=== PATIENT | female | born 1960 | race Caucasian/White ===

== ENCOUNTER 2024-11-26 00:53 | Observation (INO) | payer OTHER, SELFPAY ==
[2024-11-26 02:22] VITALS: O2SAT 95
--- NOTE | 2024-11-26 02:40 | USCV_ITS ---
Ally Deras Age: 64 Gender: F : 1960 Exam Date: 11/26/2024 04:12 Ordering Phys: Marielos Li MD Technologist: MARCELO Exam Location: [facility] Indication: Atrial fibrillation with RVR BP: 144 / 83 HR: 66 Rhythm: Sinus Technical Quality: Adequate MEASUREMENTS (Male / Female) Normal Values 2D ECHO LV Diastolic Diameter PLAX 3.8 cm 4.2 - 5.9 / 3.9 - 5.3 cm IVS Diastolic Thickness 1.5 cm 0.6 - 1.0 / 0.6 - 0.9 cm IVS Systolic Thickness 1.8 cm LVPW Diastolic Thickness 1.4 cm 0.6 - 1.0 / 0.6 - 0.9 cm LVPW Systolic Thickness 1.6 cm LVOT Diameter 1.7 cm LV Ejection Fraction 2D Teich 60.5 % LV Ejection Fraction MOD 4C 64.0 % LV Ejection Fraction MOD 2C 56.5 % LV Ejection Fraction 2C AL 59.0 % LA Diameter 2.8 cm Aorta at Sinotubular Diameter 3.0 cm IVC Diameter 1.7 cm M-MODE LA Ao Ratio MM 1.0 AV Cusp Separation MM 1.8 cm DOPPLER AV Peak Velocity 153.0 cm/s LVOT Peak Velocity 137.0 cm/s AV Area Cont Eq vti 1.9 cm squared AV Area Cont Eq pk 2.0 cm squared MV Peak Velocity 103.0 cm/s MV Area PHT 3.7 cm squared Mitral E to A Ratio 1.2 TV Peak Velocity 205.5 cm/s TR Peak Velocity 236.0 cm/s TR Peak Gradient 22.3 mmHg TV Peak E Velocity 62.0 cm/s PV Peak Velocity 92.0 cm/s FINDINGS Left Ventricle Normal left ventricular size, systolic function and wall thickness, with no regional wall motion abnormalities. Left ventricular ejection fraction is estimated at 60 %. Grade II/IV diastolic dysfunction, moderately elevated filling pressures. Right Ventricle The right ventricle is normal in size and function. Right Atrium The right atrium is normal in size. Left Atrium Moderately increased left atrial size. Mitral Valve Mildly thickened mitral valve. No mitral valve stenosis. Mild mitral valve regurgitation. Aortic Valve Structurally normal aortic valve without significant sclerosis or stenosis. There is no aortic regurgitation. Tricuspid Valve Mild tricuspid valve regurgitation. Pulmonic Valve Structurally normal pulmonic valve without significant stenosis. There is no pulmonic regurgitation. Pericardium Normal pericardium without effusion. Aorta Normal ascending aorta dimension. IVC The inferior vena cava appears normal. CONCLUSIONS Normal left ventricular size, systolic function and wall thickness, with no regional wall motion abnormalities. Left ventricular ejection fraction is estimated at 60 %. Grade II/IV diastolic dysfunction, moderately elevated filling pressures. Moderately increased left atrial size. Mildly thickened mitral valve. No mitral valve stenosis. Mild mitral valve regurgitation. Structurally normal aortic valve without significant sclerosis or stenosis. There is no aortic regurgitation. Mild tricuspid valve regurgitation. There is no pericardial effusion. Right atrial pressure is around 5 mm of mercury. Mejia Lopez MD (Electronically Signed) Final Date: 26 November 2024 20:03 S
--- NOTE | 2024-11-26 02:54 | P.HP_ITS ---
Providers/Chief Complaint 2 Admitting Physician: Marielos Li MD--- patient seen and evaluated after 12 midnight Primary Care Provider: BRADY Sanz Chief Complaint: A-Fib with RVR History of Present Illness Ally Deras is a 64 year old female with medical history significant for atrial fibrillation and was never on any anticoagulant because she did not want to be.. Patient was diagnosed with A-fib 2 years ago. Finally she is now agreeing to be on anticoagulant and [facility] and patient had not gotten it yet. Patient has had cardiology over in [facility] and was actually there and had stress test done 2 days ago result is unknown. Patient was over at [facility] here in [place] because of atrial fibrillation with RVR. She never had any chest pain but had palpitation. At the time when patient arrived there the heart rate was in the 130s. She was given some boluses of Cardizem and that did not help and finally Cardizem drip was initiated. At that [facility] patient could not be admitted there because they do not have cardiology. If they could liquid out of bed because they did not have the results of the stress test at the time neither do we have this at this particular time. They had called [facility] did not have a bed for that reason they called here to accept this patient for care I accepted patient. Patient got here after 12 midnight troponin over there had been negative x 2 and 6-hour troponin was negative as well. Patient converted this morning to normal sinus rhythm in the 60s 70s. Cardizem drip was discontinued I gave patient metoprolol succinate 25 mg and patient has stayed in sinus. 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 Actually because of his symptomatology she is splitting this dose to take it 4 times a day and the other was 12.5 mg 4 times a day or as she will get dizzy with it. At related to her she probably was taking the losartan 100 mg daily along with hydrochlorothiazide that she was taking for blood pressure and this might be what is causing the symptoms for the combinations. Cardiology will be seeing this patient and decide as to what to do. Report had been requested from [facility] as to the results of the stress test that was just done 2 days ago. Review of Systems 2 Narrative: System review upon 10 organ review we are only remarkable for palpitation because of atrial fibrillation with RVR. Medications/Allergies Home Medications ?Medication ?Instructions ?Recorded ?Confirmed ?Last Taken ?Type hydrochlorothiazide 12.5 mg tablet 12.5 mg PO DAILY 11/26/24 Unknown History losartan 100 mg tablet 100 mg PO DAILY 11/26/2402/09 Unknown History metoprolol succinate 25 mg 25 mg PO BID 11/26/2411/26 Unknown History tablet,extended release 24 hr Vitals/I&O/Wt Last Vital Signs Pulse Ox 95 11/26/24 02:22 O2 Del Method Room Air 11/26/24 01:06 FiO2 21 11/26/24 02:22 Weight last 48 hrs Weight 90.322 kg Physical Exam 2 Narrative: Generally patient is not unwell not ill-appearing doing okay and very eloquent and talks a lot. HEENT normocephalic/atraumatic neck neck is supple cardiovascular heart rate is regular lungs are pretty much clear abdomen soft nontender nondistended unremarkable extremities are intact no edema has good pulses neurology has no focality lab studies lab studies reviewed and noted. Data 11/26/24 03:00 11/26/24 03:00 A&P Assessment and plan 1. Atrial fibrillation with RVR: 2. Palpitation: Plan: Atrial fibrillation with RVR - History of paroxysmal A-fib for 2 years not on any anticoagulant - Patient with palpitation with no chest pains - [facility]iac [facility] and 6-hour troponin negative - Case discussed with Dr. Lopez and Dr. Lopez will see the patient - Patient converted on Cardizem drip within 1-1/2-hour arriving here after 12 midnight - Patient quite asymptomatic on room air no shortness of breath and no chest pains - EKGs repeated when the patient converted to normal sinus - Patient was given full aspirin and then daily - I initiated patient metoprolol succinate 25 mg twice a day the patient cardiology's order from [facility] had ordered an echocardiogram - Follow up with cardiology recommendation - Follow up the result of stress test done [address] [facility] report had been requested PDMP PDMP Reviewed: Not Reviewed Attestations 2 Medical Necessity Statement*: Patient is 23-hour observation depending on what cardiology would like to do with the patient care versus inpatient allowing 2 midnight stay Coding Level of Care Code 95266 Diagnoses Atrial fibrillation with RVR I48.91 Palpitation R00.2 Time Spent (min) 60
[2024-11-26 03:11] LABS: Hematocrit 39.4 % (36-47); Hemoglobin 13.00 g/dL (11.27-16.99); Mean Corpuscular HGB Conc 33.0 g/dL (30-55); Mean Corpuscular Hemoglobin 31.0 pg (27-33); Mean Corpuscular Volume 93.8 fl (85-98); Nucleated Red Blood Cells % 0 %; Platelet Count 243 10^3/cmm (157-399); Red Blood Count 4.20 10^6/uL (3.85-5.65); White Blood Count 8.63 10^3/uL (3.29-11.43)
[2024-11-26 03:27] LABS: Troponin(5th) Baseline 15 ng/L (0-10)
[2024-11-26 03:28] LABS: Alanine Aminotransferase 15 U/L (0-33); Albumin Level 4.2 g/dL (3.5-5.2); Alkaline Phosphatase 99 U/L (35-105); Anion Gap 16.6 (5-19); Aspartate Amino Transferase 14 U/L (0-32); Blood Urea Nitrogen 21 mg/dL (8-23); Calcium 8.9 mg/dL (8.5-10.5); Carbon Dioxide 24 mmol/L (22-29); Chloride 104 mmol/L (98-107); Globulin 1.9 g/dL (1.3-4.6); Glucose 128 mg/dL (65-115); Magnesium 2.1 mg/dL (1.7-2.3); Osmolality Calculated 297 mOsm/kg (285-295); Potassium 3.6 mmol/L (3.5-5.1); Sodium 141 mmol/L (136-145); Total Protein 6.1 g/dL (6.6-8.7)
[2024-11-26 04:00] VITALS: BP 144/83; PULSE 70; RESP 19; O2SAT 98
[2024-11-26] MEDS: heparin 5,000 unit/mL INJ 1 mL 5000 UNIT SUBCUT (04:06)
[2024-11-26] MEDS: metoprolol succinate ER (24 HR) 25 mg Tablet PO (04:06)
[2024-11-26 05:18] LABS: Troponin 5 2HR 10.71 ng/L (0-10)
[2024-11-26 05:21] LABS: Troponin 5 2HR Delta -4.29 ABS# (0-10)
--- NOTE | 2024-11-26 07:29 | ECG_ITS ---
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
[2024-11-26 07:38] VITALS: BP 148/78; PULSE 73; RESP 20; TEMP 37.3; O2SAT 98
--- NOTE | 2024-11-26 09:04 | ECG_ITS ---
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
[2024-11-26 09:53] LABS: Troponin 5 6HR 10.48 ng/L (0-10)
[2024-11-26 09:56] LABS: Troponin 5 6HR Delta -4.52 ng/L (0-12)
[2024-11-26 11:17] VITALS: BP 136/84; PULSE 71; RESP 17; TEMP 37.1; O2SAT 98
--- NOTE | 2024-11-26 11:27 | PM.DCS ---
Discharge Providers Date of Admission: 11/26/24 00:53 Date of Discharge: November 26, 2024 Attending Provider at Admission: Marielos Li MD Attending Provider at Discharge: Rufino Miranda MD Consults: none Primary Care Provider: BRADY Sanz Diagnoses at Discharge Discharge Diagnosis 1. Atrial fibrillation with RVR: 2. Palpitation: Reason for Visit Reason for Visit: A-Fib with RVR Brief History: Ally Deras is a 64 year old female with medical history significant for atrial fibrillation and was never on any anticoagulant because she did not want to be. Patient was diagnosed with A-fib 2 years ago. Finally she is now agreeing to be on anticoagulant and they were going to mail her Eliquis from the [place] and patient had not receive it yet. Patient has seen Dr. Steve CHRISTOPHER cardiology over in [facility] and was actually there and had stress test done 2 days ago with result yet unknown. On day of presentation patient was over at [place], [place] because of atrial fibrillation with RVR. She never had any chest pain but had palpitation. At the time when patient arrived there the heart rate was in the 130s. She was given some boluses of Cardizem and that did not help and finally Cardizem drip was initiated. At that [facility] patient could not be admitted there because they do not have cardiology. They had called [facility] did not have a bedand she was subsequently referred to [facility] for admission. Hospital Course Hospital Course Patient had seen Jerome Wilson MD at [facility]. She is awaiting her stress test results. Patient states she was recently started on treatment for CPAP and that her settings sound like CPAP of 9 ramping up from 4 at onset of sleep the patient converted spontaneously to sinus rhythm and cardiac enzymes here were negative. She is agreeable to anticoagulation but has not yet received her Eliquis. I noted that her potassium is low normal at 3.6 but magnesium is normal at 2.1. Patient takes HCTZ 12.5 mg as part of her antihypertensive regimen. Patient is safe for discharge but add potassium chloride 10 mill colons daily to her regimen, take metoprolol 25 mg twice a day and start Eliquis 5 mg twice a day. 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 Patient has converted to sinus rhythm and no intervention needed. She already is following up with cardiology at [facility] [place] [facility] Physical Exam Narrative: General Well-developed well-nourished female in no acute cardiopulmonary stress Oropharynx Mallampati 1 CV regular rate and rhythm Lungs clear to auscultation bilaterally Abdomen positive bowel tones soft nontender Calves no tenderness cords pretibial edema Discharge Data Studies Completed and Pending Pending at discharge Category Date Time Status CV. echo complete* [id number] Routine Ultrasound 11/26/24 02:40 Taken Laboratory Results WBC 8.63 10^3/uL (3.29-11.43) 11/26/24 03:00 RBC 4.20 10^6/uL (3.85-5.65) 11/26/24 03:00 Hgb 13.00 g/dL (11.27-16.99) 11/26/24 03:00 Hct 39.4 % (36-47) 11/26/24 03:00 MCV 93.8 fl (85-98) 11/26/24 03:00 MCH 31.0 pg (27-33) 11/26/24 03:00 MCHC 33.0 g/dL (30-55) 11/26/24 03:00 RDW 12.7 % (12.1-15.1) 11/26/24 03:00 Plt Count 243 10^3/cmm (157-399) 11/26/24 03:00 MPV 10.3 fL (7.4-10.4) 11/26/24 03:00 Neut % (Auto) 59.3 % 11/26/24 03:00 Lymph % (Auto) 23.4 % 11/26/24 03:00 Carson % (Auto) 8.0 % 11/26/24 03:00 Eos % (Auto) 8.5 % 11/26/24 03:00 Baso % (Auto) 0.6 % 11/26/24 03:00 Neut # (Auto) 5.12 10^3/uL (1.8-7.7) 11/26/24 03:00 Lymph # (Auto) 2.0 10^3/uL (0.8-4.8) 11/26/24 03:00 Carson # (Auto) 0.7 10^3/uL (0.2-0.9) 11/26/24 03:00 Eos # (Auto) 0.7 10^3/uL (0.0-0.8) 11/26/24 03:00 Baso # (Auto) 0.1 10^3/uL (0.0-0.1) 11/26/24 03:00 Nucleated RBC % (auto) 0 % 11/26/24 03:00 Nucleated RBCs # 0.0 /100WBC 11/26/24 03:00 Sodium 141 mmol/L (136-145) 11/26/24 03:00 Potassium 3.6 mmol/L (3.5-5.1) 11/26/24 03:00 Chloride 104 mmol/L (98-107) 11/26/24 03:00 Carbon Dioxide 24 mmol/L (22-29) 11/26/24 03:00 Anion Gap 16.6 (5-19) 11/26/24 03:00 BUN 21 mg/dL (8-23) 11/26/24 03:00 Creatinine 0.8 mg/dL (0.5-0.9) 11/26/24 03:00 GFR Calculation 72.0 mL/min (90-130) L 11/26/24 03:00 Glucose 128 mg/dL (65-115) H 11/26/24 03:00 Calculated Osmolality 297 mOsm/kg (285-295) H 11/26/24 03:00 Calcium 8.9 mg/dL (8.5-10.5) 11/26/24 03:00 Phosphorus 3.4 mg/dL (2.5-4.5) 11/26/24 03:00 Magnesium 2.1 mg/dL (1.7-2.3) 11/26/24 03:00 Total Bilirubin 0.2 mg/dL (0.15-1.2) 11/26/24 03:00 AST 14 U/L (0-32) 11/26/24 03:00 ALT 15 U/L (0-33) 11/26/24 03:00 Alkaline Phosphatase 99 U/L (35-105) 11/26/24 03:00 Troponin T Baseline 15 ng/L (0-10) H 11/26/24 03:00 Troponin T 120 Minute 10.71 ng/L (0-10) H 11/26/24 04:55 Delta Troponin T -4.29 ABS# (0-10) L 11/26/24 04:55 Troponin T Hi Sens 6Hr 10.48 ng/L (0-10) H 11/26/24 09:16 Troponin T Hi Sens 6Hr Delta -4.52 ng/L (0-12) L 11/26/24 09:16 Total Protein 6.1 g/dL (6.6-8.7) L 11/26/24 03:00 Albumin 4.2 g/dL (3.5-5.2) 11/26/24 03:00 Globulin 1.9 g/dL (1.3-4.6) 11/26/24 03:00 Vitals Last Vital Signs Temp 98.8 F 11/26/24 11:17 Pulse 71 11/26/24 11:17 Resp 17 11/26/24 11:17 BP 136/84 11/26/24 11:17 Pulse Ox 98 11/26/24 11:17 O2 Del Method Room Air 11/26/24 11:17 FiO2 21 11/26/24 02:22 Discharge Plan Discharge Patient Disposition: Home Condition: Stable Prescriptions: New potassium chloride [Klor-Con 10] 10 mEq tablet extended release 10 meq PO DAILY Qty: 30 0RF apixaban 5 mg tablet 5 mg PO BID Qty: 60 0RF Continued metoprolol succinate 25 mg Tablet Extended Release 24 Hr 25 mg PO BID losartan 100 mg Tablet 100 mg PO DAILY hydrochlorothiazide 12.5 mg Tablet 12.5 mg PO DAILY Discharge Order = DC NOW: Discharge Order (Routine); Ordered 11/26/24 Ordered By: Rufino Miranda Referrals: Lori Flores FNP [Primary Care Provider, Nurse Practitioner] - 12/01/24 2:30 pm Jah Wilson MD [Referring, Vascular Surgery] - 2 weeks Discharge Diet: Cardiac Discharge Activity: Resume usual activity Patient Instructions: Potassium Chloride (By mouth), Apixaban (By mouth) (Eliquis), Heart Palpitations, A-fib (Atrial Fibrillation) (DC), Anticoagulation Therapy, Opioid Safety, Patient Portal & Neri Instructions Activity Restrictions/Additional Instructions: Take metoprolol succinate twice Your potassium is low and will benefit from replacement of potassium loss with your HCTZ diuretic. Low potassium can worsen atrial fibrillation Restarted apixaban to prevent clots in the heart from forming due to atrial fibrillation which can lead to stroke. If you notice blood in your stool urine or other bleeding notify your physician. Use your CPAP faithfully as that can improve function in your heart and decrease chance of atrial fibrillation as well Discharge Attestations Time Spent in Discharge Care*: greater than 30 min Quality Metrics Clinical Quality Measures [ No reported AMI, CVA or VTE this stay] Coding Level of Care Code 27686 Diagnoses Atrial fibrillation with RVR I48.91 Palpitation R00.2 Time Spent (min) 35
[2024-11-26 12:48] VITALS: BP 136/84; PULSE 73; RESP 18; O2SAT 94
== END 2024-11-26 13:24 | disposition home or self-care (01) ==
PROVIDERS: Admitting Provider Internal Medicine; PCP Nurse Practitioner; Visit Provider Internal Medicine
DX: R00.2 Palpitations (principal); I48.91 Unspecified atrial fibrillation
CPT/HCPCS: 36415; 80053; 83735; 84100; 84484; 85025; 93005; 93306; 94660; 96372; G0378; G0379; J1644; J7030; J9999